=== PATIENT | male | born 1980 | race Caucasian/White ===

== ENCOUNTER 2016-11-14 10:03 | Inpatient (IN) | payer OTHER ==
[2016-11-14 10:23] VITALS: BMI 23.3
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
[2016-11-14] MEDS ORDERED: P-EPHED 60MG/TRIPROLIDI 2.5MG TABLET PO PRN (15:04)
[2016-11-14] MEDS ORDERED: MENTHOL/PHENOL 1 EACH UD MM PRN (15:04)
[2016-11-14] MEDS ORDERED: MAGNESIUM CITRATE 300 ML BOTTLE PO PRN (15:04)
[2016-11-14] MEDS ORDERED: guaiFENesin/D-METHORPHAN HB 10 ML UNIT-DOSE CUPS PO PRN (15:04)
[2016-11-14] MEDS ORDERED: hydrOXYzine PAMOATE 25 MG CAPSULE (FP) PO PRN (15:04)
[2016-11-14] MEDS ORDERED: diphenhydrAMINE HCL 50 MG CAPSULE PO PRN (15:04)
[2016-11-14] MEDS ORDERED: ACETAMINOPHEN 325 MG TABLET (FP) PO PRN (15:04)
[2016-11-14] MEDS ORDERED: MAG HYDROX/AL HYDROX/SIMETH 30 ML UNIT-DOSE CUP PO PRN (15:04)
[2016-11-14] MEDS ORDERED: LOPERAMIDE HCL 2 MG CAPSULE PO PRN (15:04)
[2016-11-14] MEDS ORDERED: MAGNESIUM HYDROX 2400MG/30ML ORAL SUSPENSION 30 ML CUP PO PRN (15:04)
[2016-11-14] MEDS ORDERED: diazePAM 5 MG TABLET PO ONE (15:49)
[2016-11-14] MEDS ORDERED: METHADONE HCL 10 MG TABLET (FOR DETOX USE ONLY) PO ONE ×2 (15:52→23:00)
[2016-11-14] MEDS: NICOTINE 21 MG/24 HOURS TOPICAL PATCH TD SCH (16:51)
[2016-11-14 17:22] LABS: URINE APPEARANCE TURBID; URINE BILIRUBIN NEGATIVE (NEGATIVE); URINE BLOOD NEGATIVE (NEGATIVE); URINE COLOR YELLOW; URINE GLUCOSE (UA) NEGATIVE (NEGATIVE); URINE KETONE NEGATIVE (NEGATIVE); URINE LEUK ESTERASE NEGATIVE (NEGATIVE); URINE NITRITE NEGATIVE (NEGATIVE); URINE PROTEIN NEGATIVE (NEGATIVE); URINE UROBILINOGEN NEGATIVE E.U./dl (0.2-1.0)
[2016-11-14] MEDS: NICOTINE POLACRILEX 4 MG GUM BUC PRN ×3 (17:41→22:16)
[2016-11-14] MEDS ORDERED: PHENYLEPHRINE 0.25%/STARCH 1 EACH SUPP.RECT PR ONE (21:47)
--- NOTE | 2016-11-14 21:49 | PN ---
[facility] Progress Note Note: c/o hemorrhoid hemorrhoid suppsitory x 1 continue detox
[2016-11-14] MEDS ORDERED: CYCLOBENZAPRINE HCL 10 MG TABLET (FP) PO SCH (22:00)
[2016-11-14] MEDS ORDERED: PHENYLEPHRINE 0.25%/STARCH 1 EACH SUPP.RECT RC ONE (22:00)
[2016-11-14] MEDS: GABAPENTIN 300 MG CAPSULE (FP) PO SCH (22:02)
[2016-11-14] MEDS: diazePAM 5 MG TABLET PO SCH (22:02)
[2016-11-14] MEDS: THIAMINE HCL 100 MG TABLET (FP) PO SCH (22:02)
[2016-11-15] MEDS: diazePAM 5 MG TABLET PO SCH ×3 (05:52→21:47)
--- NOTE | 2016-11-15 08:30 | CONSULT ---
[facility] Psychiatric Consult - Data Date of interview: 11/15/16 Admission source: [facility] Identifying data: Mr Sweeney is a 36 years old single male, unemployed on public assistance, domiciled seeking detox treatment for alcohol, heroin and xanax Substance Abuse History: - Smoking Cessation. Smoking history: Current every day smoker. Have you smoked in the past 12 months: Yes. Aproximately how many cigarettes per day: 20. Hx Chewing Tobacco Use: No. Initiated information on smoking cessation: Yes. 'Breaking Loose' booklet given: 11/14/16. - Substance & Tx. History. Hx Alcohol Use: Yes. Hx Substance Use: Yes (HEROIN/XANAX/ KLONOPIN/ATIVAN/ECSTACY). Substance Use Type: Alcohol, Heroin, Tranquilizers. Hx Substance Use Treatment: Yes. - Substances Abused. Heroin. Route: Injection. Frequency: Daily. Amount used: 10-12 bags. Age of first use: 23. Date of Last Use: 11/14/16. Alcohol. Route: Oral. Frequency: Daily. Amount used: 3 pints vodka. Age of first use: 13. Date of Last Use: 11/14/16. Alprazolam (Xanax). Route: Oral. Frequency: Daily. Amount used: 8mg. Age of first use: 23. Date of Last Use: 11/14/16 Medical History: Significant for history of Seizure Disorder, borderline DM, S/ P Testicular surgery at age 15 and S/P rectal prolapse. Smokes cigarettes 1ppd Psychiatric History: Denies history of previous psychiatric treatment. However, reports feeling anxious and experiencing difficulty to sleep Mental Status Exam - Mental Status Exam Alert and Oriented to: Time, Place, Person Cognitive Function: Fair Patient Appearance: Well Groomed Mood: Anxious Affect: Appropriate Patient Behavior: Cooperative Voice Loudness: Normal Thought Process: Intact Thought Disorder: Not Present Hallucinations: Denies Suicidal Ideation: Denies Homicidal Ideation: Denies Insight/Judgement: Poor Sleep: Poorly Appetite: Good Muscle strength/Tone: Normal Gait/Station: Normal Psychiatric Findings - Problem List ([place] 1, 2,3) (1) Substance-induced anxiety disorder Current Visit: Yes Status: Acute (2) Substance-induced sleep disorder Current Visit: Yes Status: Acute (3) Alcohol dependence with uncomplicated withdrawal Current Visit: Yes Status: Acute (4) Opioid dependence with withdrawal Current Visit: Yes Status: Acute (5) Sedative, hypnotic or anxiolytic dependence with withdrawal, uncomplicated Current Visit: Yes Status: Acute (6) Nicotine dependence Current Visit: Yes Status: Acute (7) History of borderline diabetes mellitus Current Visit: Yes Status: Acute (8) Seizure disorder Current Visit: Yes Status: Acute - Initial Treatment Plan Initial Treatment Plan: 1) Start Ambien 10 mg po HS prn for insomnia. Benefits vs Risks of medication discussed with patient and he agreed to try it. 2) Continue detox protocol
[2016-11-15] MEDS ORDERED: METHADONE HCL 10 MG TABLET (FOR DETOX USE ONLY) PO SCH (10:00)
[2016-11-15] MEDS: PRENATAL VITAMINS W/ FOLIC ACID TABLET (FP) PO SCH (10:05)
[2016-11-15] MEDS: GABAPENTIN 300 MG CAPSULE (FP) PO SCH ×2 (10:06→21:45)
[2016-11-15] MEDS: NICOTINE 21 MG/24 HOURS TOPICAL PATCH TD SCH (10:06)
[2016-11-15] MEDS: NICOTINE POLACRILEX 4 MG GUM BUC PRN ×4 (10:06→21:51)
[2016-11-15] MEDS: diazePAM 5 MG TABLET PO PRN ×2 (10:07→17:16)
[2016-11-15 11:08] LABS: MCH 32.2 pg (25.7-33.7); MCHC 33.6 g/dl (32.0-35.9); MEAN CELL VOLUME 96.1 fl (80-96); PLATELET COUNT 217 K/MM3 (134-434); RDW 13.3 % (11.9-15.9); WHITE BLOOD COUNT 8.7 K/mm3 (4.0-10.0)
[2016-11-15 11:54] LABS: ALBUMIN 3.8 g/dl (3.4-5.0); ALK PHOS 83 U/L (45-117); ANION GAP 7 (8-16); BILIRUBIN,TOTAL 0.2 mg/dL (0.2-1.0); CALCIUM 8.3 mg/dL (8.5-10.1); CO2 29 mmol/L (21-32); CREATININE 0.8 mg/dL (0.7-1.3); GLUCOSE,RANDOM 146 mg/dL (74-106); SGOT/AST 35 U/L (15-37); SGPT/ALT 33 U/L (12-78); TOT PROT 6.7 g/dl (6.4-8.2)
[2016-11-15] MEDS ORDERED: INFLUENZA VACCINE 45 MCG/0.5 ML (MDV 16-17) IM ONE (12:00)
[2016-11-15] MEDS: ZOLPIDEM TARTRATE 10 MG TABLET (PARK CARE ONLY) PO PRN (21:46)
[2016-11-15] MEDS: THIAMINE HCL 100 MG TABLET (FP) PO SCH (22:49)
[2016-11-16] MEDS: GABAPENTIN 300 MG CAPSULE (FP) PO SCH ×2 (10:07→21:59)
[2016-11-16] MEDS: PRENATAL VITAMINS W/ FOLIC ACID TABLET (FP) PO SCH (10:07)
[2016-11-16] MEDS: diazePAM 5 MG TABLET PO SCH ×2 (10:07→21:59)
[2016-11-16] MEDS: METHADONE HCL 5 MG TABLET (FOR DETOX USE ONLY) PO SCH (10:07)
[2016-11-16] MEDS: NICOTINE 21 MG/24 HOURS TOPICAL PATCH TD SCH (10:08)
--- NOTE | 2016-11-16 11:32 | PN ---
S CIWA - CIWA Score Nausea/Vomitin Muscle Tremors: 4-Moderate,w/Arms Extend Anxiety: 4-Mod. Anxious/Guarded Agitation: 4-Moderately Restless Paroxysmal Sweats: No Perspiration Orientation: 0-Oriented Tacttile Disturbances: 1-Very Mild Itch/Numbness Auditory Disturbances: 0-None Visual Disturbances: 0-None Headache: 3-Moderate CIWA-Ar Total Score: 21 [facility] COWS - Scale Resting Pulse: 1= SD 81-100 Sweatin=Flushed/Facial Moisture Restless Observation: 1= Difficult to Sit Still Pupil Size: 0= Normal to Room Light Bone or Joint Aches: 2= Severe Diffuse Aches Runny Nose/ Eye Tearin= Runny Nose/Eyes GI Upset > 30mins: 3= Vomiting/Diarrhea Tremor Observation of Outstretched Hands: 2= Slight Tremor Visible Yawning Observation: 0= None Anxiety or Irritability: 2=Irritable/Anxious Goose Flesh Skin: 0=Smooth Skin COWS Score: 15 S Progress Note (SOAP) Subjective: Headache, nausea, vomiting, rhinorrhea, sweating, tremor, chills Objective: 11/16/16 11:29 Last Vital Signs Temp Pulse Resp BP Pulse Ox 97 F L 93 H 20 122/70 11/16/16 11:22 11/16/16 11:22 11/16/16 11:22 11/16/16 11:22 Laboratory Tests 11/14/16 11/14/16 11/15/16 16:00 16:18 05:51 WBC RBC Hgb Hct MCV MCHC RDW Plt Count MPV Sodium Potassium Chloride Carbon Dioxide Anion Gap BUN Creatinine Creat Clearance w eGFR POC Glucometer 117 96 Random Glucose Calcium Total Bilirubin AST ALT Alkaline Phosphatase Total Protein Albumin Urine Color Yellow Urine Appearance Turbid Urine pH 7.0 Ur Specific [place] 1.028 Urine Protein Negative Urine Glucose (UA) Negative Urine Ketones Negative Urine Blood Negative Urine Nitrite Negative Urine Bilirubin Negative Urine Urobilinogen Negative Ur Leukocyte Esterase Negative 11/15/16 11/15/16 11/15/16 06:10 06:10 16:15 WBC 8.7 RBC 3.71 L Hgb 12.0 Hct 35.7 MCV 96.1 H MCHC 33.6 RDW 13.3 Plt Count 217 MPV 9.0 Sodium 142 Potassium 4.2 Chloride 106 Carbon Dioxide 29 Anion Gap 7 L BUN 18 Creatinine 0.8 Creat Clearance w eGFR > 60 POC Glucometer 86 Random Glucose 146 H Calcium 8.3 L Total Bilirubin 0.2 AST 35 ALT 33 Alkaline Phosphatase 83 Total Protein 6.7 Albumin 3.8 Urine Color Urine Appearance Urine pH Ur Specific [place] Urine Protein Urine Glucose (UA) Urine Ketones Urine Blood Urine Nitrite Urine Bilirubin Urine Urobilinogen Ur Leukocyte Esterase Labs noted: hyperglycemia; finger sticks wnl on 11/15/16 Assessment: 11/16/16 11:31 Withdrawal symptoms Noted with Hyperglycemia secondary to prediabetes Plan: Continue detox, encouraged to drink lots of fluids Hyperglycemia secondary to prediabetes: encourage lifestyle modification (diet and exercise as tolerated to lose weight)
[2016-11-16] MEDS: diazePAM 5 MG TABLET PO PRN ×3 (12:26→21:01)
[2016-11-16] MEDS: NICOTINE POLACRILEX 4 MG GUM BUC PRN ×2 (14:12→17:19)
[2016-11-16] MEDS: IBUPROFEN 400 MG TABLET (FP) PO PRN (18:41)
[2016-11-16] MEDS: ZOLPIDEM TARTRATE 10 MG TABLET (PARK CARE ONLY) PO PRN (21:59)
[2016-11-16] MEDS: THIAMINE HCL 100 MG TABLET (FP) PO SCH (21:59)
[2016-11-17] MEDS: diazePAM 5 MG TABLET PO PRN ×2 (05:42→14:41)
[2016-11-17] MEDS: diazePAM 5 MG TABLET PO SCH ×2 (10:04→21:49)
[2016-11-17] MEDS: GABAPENTIN 300 MG CAPSULE (FP) PO SCH ×2 (10:04→21:49)
[2016-11-17] MEDS: NICOTINE 21 MG/24 HOURS TOPICAL PATCH TD SCH (10:05)
[2016-11-17] MEDS: METHADONE HCL 5 MG TABLET (FOR DETOX USE ONLY) PO SCH (10:05)
[2016-11-17] MEDS: PRENATAL VITAMINS W/ FOLIC ACID TABLET (FP) PO SCH (10:05)
[2016-11-17] MEDS: NICOTINE POLACRILEX 4 MG GUM BUC PRN ×3 (10:06→18:43)
--- NOTE | 2016-11-17 10:36 | PN ---
[facility] CIWA - CIWA Score Nausea/Vomitin Muscle Tremors: 4-Moderate,w/Arms Extend Anxiety: 4-Mod. Anxious/Guarded Agitation: 4-Moderately Restless Paroxysmal Sweats: 3 Orientation: 0-Oriented Tacttile Disturbances: 1-Very Mild Itch/Numbness Auditory Disturbances: 0-None Visual Disturbances: 0-None Headache: 0-None Present CIWA-Ar Total Score: 19 [facility] COWS - Scale Resting Pulse: 2= [place] 101-120 Sweatin= Chills/Flushing Restless Observation: 1= Difficult to Sit Still Pupil Size: 1= Pupils >than Normal Bone or Joint Aches: 1= Mild Discomfort Runny Nose/ Eye Tearin= Nasal Congestion GI Upset > 30mins: 2= Nausea/Diarrhea Tremor Observation of Outstretched Hands: 2= Slight Tremor Visible Anxiety or Irritability: 2=Irritable/Anxious Goose Flesh Skin: 3=Piloerection [facility] Progress Note (SOAP) Subjective: nausea, sweats, interrupted sleep, anxiety, tremor Objective: 11/17/16 10:35 Vital Signs - 24 hr 11/16/16 11/16/16 11/16/16 11:22 14:11 17:08 Temperature 97 F L 96.2 F L 98.6 F Pulse Rate 93 H 88 69 Respiratory 20 20 16 Rate Blood Pressure 122/70 121/73 100/63 11/16/16 11/17/16 11/17/16 21:50 03:30 06:07 Temperature 97.0 F L 96.8 F L Pulse Rate 82 72 Respiratory 18 18 16 Rate Blood Pressure 110/68 116/77 11/17/16 09:14 Temperature 98.8 F Pulse Rate 111 H Respiratory 18 Rate Blood Pressure 124/78 Laboratory Tests 11/14/16 11/14/16 11/15/16 16:00 16:18 05:51 WBC RBC Hgb Hct MCV MCHC RDW Plt Count MPV Sodium Potassium Chloride Carbon Dioxide Anion Gap BUN Creatinine Creat Clearance w eGFR POC Glucometer 117 96 Random Glucose Calcium Total Bilirubin AST ALT Alkaline Phosphatase Total Protein Albumin Urine Color Yellow Urine Appearance Turbid Urine pH 7.0 Ur Specific [place] 1.028 Urine Protein Negative Urine Glucose (UA) Negative Urine Ketones Negative Urine Blood Negative Urine Nitrite Negative Urine Bilirubin Negative Urine Urobilinogen Negative Ur Leukocyte Esterase Negative RPR Titer 11/15/16 11/15/16 11/15/16 06:10 06:10 06:10 WBC 8.7 RBC 3.71 L Hgb 12.0 Hct 35.7 MCV 96.1 H MCHC 33.6 RDW 13.3 Plt Count 217 MPV 9.0 Sodium 142 Potassium 4.2 Chloride 106 Carbon Dioxide 29 Anion Gap 7 L BUN 18 Creatinine 0.8 Creat Clearance w eGFR > 60 POC Glucometer Random Glucose 146 H Calcium 8.3 L Total Bilirubin 0.2 AST 35 ALT 33 Alkaline Phosphatase 83 Total Protein 6.7 Albumin 3.8 Urine Color Urine Appearance Urine pH Ur Specific [place] Urine Protein Urine Glucose (UA) Urine Ketones Urine Blood Urine Nitrite Urine Bilirubin Urine Urobilinogen Ur Leukocyte Esterase RPR Titer Nonreactive 11/15/16 11/16/16 11/17/16 16:15 16:12 05:42 WBC RBC Hgb Hct MCV MCHC RDW Plt Count MPV Sodium Potassium Chloride Carbon Dioxide Anion Gap BUN Creatinine Creat Clearance w eGFR POC Glucometer 86 89 90 Random Glucose Calcium Total Bilirubin AST ALT Alkaline Phosphatase Total Protein Albumin Urine Color Urine Appearance Urine pH Ur Specific [place] Urine Protein Urine Glucose (UA) Urine Ketones Urine Blood Urine Nitrite Urine Bilirubin Urine Urobilinogen Ur Leukocyte Esterase RPR Titer Assessment: 11/17/16 10:36 withdrawal sx Plan: cont detox, fluids
[2016-11-17] MEDS: IBUPROFEN 400 MG TABLET (FP) PO PRN (12:09)
--- NOTE | 2016-11-17 12:47 | EKG ---
Test Reason : Blood Pressure : / mmHG Vent. Rate : 082 BPM Atrial Rate : 082 BPM P-R Int : 144 ms QRS Dur : 088 ms QT Int : 388 ms P-R-T Axes : 073 049 050 degrees QTc Int : 453 ms NORMAL SINUS RHYTHM NORMAL ECG NO PREVIOUS ECGS AVAILABLE Confirmed by ANDRE CID MD ([id number]) on 11/17/2016 12:47:37 PM Referred By: Confirmed By:ANDRE CID MD
--- NOTE | 2016-11-17 21:34 | PN ---
[facility] Progress Note Note: RECEIVED NURSE CALL PATIENT IS ANXIOUS RECOMMEND DEEP BREATHING EXERCISE PSYCHIATRIC EVALUATION CONTINUE DETOX
[2016-11-17] MEDS: cloNIDine HCL 0.1 MG TABLET PO SCH (21:49)
[2016-11-17] MEDS: THIAMINE HCL 100 MG TABLET (FP) PO SCH (21:49)
[2016-11-17] MEDS: ZOLPIDEM TARTRATE 10 MG TABLET (PARK CARE ONLY) PO PRN (22:00)
--- NOTE | 2016-11-17 22:40 | PN ---
[facility] Progress Note Note: Psychiatry Attending-international marketing manager's note : Called by nurse,Jerrell Green,to address Mr Sweeney's complaint of a "panic attack". Chart reviewed.Medications revisited.Case discussed with nurse's assembly line supervisor on duty. Attending psychiatrist,Dr Boykin,has evaluated this patient on admission (). His note is appreciated.Patient is interviewed via telephone.History as follows : Mr Sweeney is about to complete his detox program.He is aware that the valium protocol is ending with tonight's dose. Hospital course has been unremarkable until his request for more valium was denied.Mr Sweeney started producing complaint of intense anxiety." I need another order for 10 mg of valium prn (sic) otherwise I will get a panic attack." Patient indicates that his discharge is scheduled for tomorrow 11/18/16.He is reminded of the remaining HS dose of valium. Press Helper made it clear to Mr Sweeney that no extra dose of diazepam will be ordered because there is NO clinical justification at this time (no complaint of shortness of breath,feeling of impending doom, difficulty of swallowing,heavy sweating,moist palms,tachycardia). Vitals are reported as normal.Patient is argumentative,demanding and adversarial during telephone conversation with this junior underwriter. Mr Sweeney is offered titration of the dose of hydroxyzine.He refused." Vistaril is nothing.I am asking for valium.Why do I have to talk to you if you are not going to order my prn." Mr Sweeney ended the conversation. Impression and Intervention : .This situation bears the hallmarks of a manipulative/medication-seeking behavior. .No symptoms of a panic attack elicited.Therefore there is no reason to justify any additional doses of diazepam. .Firm limits were set with this patient.Alternate medication (hydroxyzine) and reassurance offered.Rejected by the patient. .Will continue to implement the treatment plan as per current orders. .Discussed with nurse on duty.
[2016-11-18] MEDS: NICOTINE POLACRILEX 4 MG GUM BUC PRN ×2 (03:25→09:34)
--- NOTE | 2016-11-18 08:57 | PN ---
[facility] Progress Note (SOAP) Subjective: no complaints Objective: 11/18/16 08:56 Vital Signs - 24 hr 11/17/16 11/17/16 11/17/16 09:14 13:22 17:16 Temperature 98.8 F 98.0 F 97.1 F L Pulse Rate 111 H 102 H 70 Respiratory 18 20 18 Rate Blood Pressure 124/78 115/75 102/61 11/17/16 11/18/16 11/18/16 22:26 00:15 06:29 Temperature 98 F 97.8 F Pulse Rate 82 93 H Respiratory 18 18 18 Rate Blood Pressure 102/70 121/80 Laboratory Tests 11/14/16 11/14/16 11/15/16 16:00 16:18 05:51 WBC RBC Hgb Hct MCV MCHC RDW Plt Count MPV Sodium Potassium Chloride Carbon Dioxide Anion Gap BUN Creatinine Creat Clearance w eGFR POC Glucometer 117 96 Random Glucose Calcium Total Bilirubin AST ALT Alkaline Phosphatase Total Protein Albumin Urine Color Yellow Urine Appearance Turbid Urine pH 7.0 Ur Specific [place] 1.028 Urine Protein Negative Urine Glucose (UA) Negative Urine Ketones Negative Urine Blood Negative Urine Nitrite Negative Urine Bilirubin Negative Urine Urobilinogen Negative Ur Leukocyte Esterase Negative RPR Titer 11/15/16 11/15/16 11/15/16 06:10 06:10 06:10 WBC 8.7 RBC 3.71 L Hgb 12.0 Hct 35.7 MCV 96.1 H MCHC 33.6 RDW 13.3 Plt Count 217 MPV 9.0 Sodium 142 Potassium 4.2 Chloride 106 Carbon Dioxide 29 Anion Gap 7 L BUN 18 Creatinine 0.8 Creat Clearance w eGFR > 60 POC Glucometer Random Glucose 146 H Calcium 8.3 L Total Bilirubin 0.2 AST 35 ALT 33 Alkaline Phosphatase 83 Total Protein 6.7 Albumin 3.8 Urine Color Urine Appearance Urine pH Ur Specific [place] Urine Protein Urine Glucose (UA) Urine Ketones Urine Blood Urine Nitrite Urine Bilirubin Urine Urobilinogen Ur Leukocyte Esterase RPR Titer Nonreactive 11/15/16 11/16/16 11/17/16 16:15 16:12 05:42 WBC RBC Hgb Hct MCV MCHC RDW Plt Count MPV Sodium Potassium Chloride Carbon Dioxide Anion Gap BUN Creatinine Creat Clearance w eGFR POC Glucometer 86 89 90 Random Glucose Calcium Total Bilirubin AST ALT Alkaline Phosphatase Total Protein Albumin Urine Color Urine Appearance Urine pH Ur Specific [place] Urine Protein Urine Glucose (UA) Urine Ketones Urine Blood Urine Nitrite Urine Bilirubin Urine Urobilinogen Ur Leukocyte Esterase RPR Titer 11/17/16 16:24 WBC RBC Hgb Hct MCV MCHC RDW Plt Count MPV Sodium Potassium Chloride Carbon Dioxide Anion Gap BUN Creatinine Creat Clearance w eGFR POC Glucometer 95 Random Glucose Calcium Total Bilirubin AST ALT Alkaline Phosphatase Total Protein Albumin Urine Color Urine Appearance Urine pH Ur Specific [place] Urine Protein Urine Glucose (UA) Urine Ketones Urine Blood Urine Nitrite Urine Bilirubin Urine Urobilinogen Ur Leukocyte Esterase RPR Titer Assessment: 11/18/16 08:57 medically stable, wishes to leave for court appearance today Plan: regular discharge, f/u PCP
--- NOTE | 2016-11-18 09:01 | DS ---
[facility] Detox Discharge Summary Admission Date: 11/14/16 Discharge Date: 11/18/16 - History Present History: Alcohol Dependence, Opioid Dependence Pertinent Past History: nicotine dependence, anxiety, depression, insomnia, seizures, DM - Physical Exam Results Vital Signs: Vital Signs Temperature 97.8 F 11/18/16 06:29 Pulse Rate 93 H 11/18/16 06:29 Respiratory Rate 18 11/18/16 06:29 Blood Pressure 121/80 11/18/16 06:29 O2 Sat by Pulse Oximetry (%) Pertinent Admission Physical Exam Findings: withdrawal sx - Treatment Hospital Course: Detox Protocol Followed, Detoxed Safely, Responded well, Discharged Condition Good, Rehab Referral Accepted - Medication Discharge Medications: Ambulatory Orders Gabapentin 1,800 mg PO BID 11/14/16 - Diagnosis (1) Alcohol dependence with uncomplicated withdrawal Current Visit: Yes Status: Acute (2) History of borderline diabetes mellitus Current Visit: Yes Status: Acute (3) Nicotine dependence Current Visit: Yes Status: Acute (4) Opioid dependence with withdrawal Current Visit: Yes Status: Acute (5) Sedative, hypnotic or anxiolytic dependence with withdrawal, uncomplicated Current Visit: Yes Status: Acute (6) Seizure disorder Current Visit: Yes Status: Acute (7) Substance-induced anxiety disorder Current Visit: Yes Status: Acute (8) Substance-induced sleep disorder Current Visit: Yes Status: Acute - AMA Did Patient Leave Against Medical Advice: No
[2016-11-18] MEDS: GABAPENTIN 300 MG CAPSULE (FP) PO SCH (09:32)
[2016-11-18] MEDS: PRENATAL VITAMINS W/ FOLIC ACID TABLET (FP) PO SCH (09:32)
[2016-11-18] MEDS: cloNIDine HCL 0.1 MG TABLET PO SCH (09:32)
[2016-11-18 09:33] VITALS: BP 119/74; PULSE 84; TEMP 98.1
[2016-11-18] MEDS: NICOTINE 21 MG/24 HOURS TOPICAL PATCH TD SCH (09:34)
[2016-11-18] MEDS ORDERED: diazePAM 5 MG TABLET PO SCH (10:00)
[2016-11-18] MEDS ORDERED: METHADONE HCL 10 MG TABLET (FOR DETOX USE ONLY) PO SCH (10:00)
[2016-11-19] MEDS ORDERED: METHADONE HCL 5 MG TABLET (FOR DETOX USE ONLY) PO SCH (06:00)
== END 2016-11-18 09:50 | disposition home or self-care (01) | DRG 773 ==
LOC: YASAS 10:03 → Y3N 14:31
PROVIDERS: ADMIT Internal Medicine; ATTEND Internal Medicine
PROC: HZ2ZZZZ Detoxification Services for Substance Abuse Treatment (ICD-10-PCS; principal; 2016-11-14)
DX: F11.23 Opioid dependence with withdrawal (principal); F13.230 Sedative, hypnotic or anxiolytic dependence with withdrawal, uncomplicated; F10.230 Alcohol dependence with withdrawal, uncomplicated; F17.210 Nicotine dependence, cigarettes, uncomplicated; F19.280 Other psychoactive substance dependence with psychoactive substance-induced anxiety disorder; F19.282 Other psychoactive substance dependence with psychoactive substance-induced sleep disorder; R73.03 Prediabetes; G40.909 Epilepsy, unspecified, not intractable, without status epilepticus; K64.8 Other hemorrhoids
CPT/HCPCS: 36415; 80053; 81003; 85027; 86593; 93005; 93010

== ENCOUNTER 2017-10-30 14:27 | Inpatient (IN) | payer OTHER ==
[2017-10-30 16:35] VITALS: BMI 23.3
--- NOTE | 2017-10-30 18:20 | HP ---
COWS - Scale Resting Pulse: 0= NM 80 or Below Sweatin=Flushed/Facial Moisture Restless Observation: 1= Difficult to Sit Still Pupil Size: 1= Pupils >than Normal Bone or Joint Aches: 2= Severe Diffuse Aches Runny Nose/ Eye Tearin= Runny Nose/Eyes GI Upset > 30mins: 3= Vomiting/Diarrhea Tremor Observation: 2= Slight Tremor Visible Yawning Observation: 1= 1-2x During Session Anxiety or Irritability: 2=Irritable/Anxious Goose Flesh Skin: 3=Piloerection COWS Score: 19 CIWA Score - CIWA Score Nausea/Vomitin Muscle Tremors: 2 Anxiety: 4-Mod. Anxious/Guarded Agitation: 2 Paroxysmal Sweats: 2 Orientation: 0-Oriented Tacttile Disturbances: 0-None Auditory Disturbances: 1-Very Mild Visual Disturbances: 1-Very Mild Sensitivity Headache: 0-None Present CIWA-Ar Total Score: 15 Admission ROS BHS - HPI Chief Complaint: WITHDRAWAL SYMPTOMS Allergies/Adverse Reactions: Allergies Allergy/AdvReac Type Severity Reaction Status Date / Time cyclobenzaprine HCl AdvReac Intermediate Verified 10/30/17 17:33 [From Flexeril] History of Present Illness: 37 Y.O. MAN WITH A HISTORY OF OPIOID, ALCOHOL AND BENZODIAZEPINE DEPENDENCE IS HERE SEEKING DETOX. HE REPORTS HE LAST COMPLETED DETOX AT [facility] 6 MONTHS AGO AND STATES HES LONGEST PERIOD CLEAN HAS BEEN 2 YEARS. Exam Limitations: No Limitations - Ebola screening Have you traveled outside of the country in the last 21 days: No (N) Have you had contact with anyone from an Ebola affected area: No Have you been sick,other than usual withdrawal symptoms: No Do you have a fever: No - Review of Systems Constitutional: Chills, Loss of Appetite, Night Sweats, Changes in sleep, Unintentional Wgt. Loss EENT: reports: Tearing, Nose Congestion Respiratory: reports: No Symptoms reported Cardiac: reports: No Symptoms Reported GI: reports: Diarrhea, Nausea, Vomiting, Abdominal cramping : reports: No Symptoms Reported Musculoskeletal: reports: No Symptoms Reported Integumentary: reports: No Symptoms Reported Neuro: reports: Seizure (3 MONTHS AGO) Endocrine: reports: No Symptoms Reported Hematology: reports: No Symptoms Reported Psychiatric: reports: Orientated x3, Anxious, Depressed Other Systems: Reviewed and Negative Patient History - Patient Medical History Hx Anemia: No Hx Asthma: No Hx Chronic Obstructive Pulmonary Disease (COPD): No Hx Cardiac Disorders: No Hx Congestive Heart Failure: No Hx Hypertension: No Hx Hypercholesterolemia: No Hx Pacemaker: No HX Cerebrovascular Accident: No Hx Seizures: Yes (last seizure 3 months ago.) Hx Dementia: No Hx Diabetes: Yes (borderline) Hx Gastrointestinal Disorders: No Hx Liver Disease: No Hx Genitourinary Disorders: No Hx Sexually Transmitted Disorders: No Hx Renal Disease (ESRD): No Hx Thyroid Disease: No Hx Human Immunodeficiency Virus (HIV): No (NEGATIVE HX) Hx Hepatitis C: No Hx Depression: Yes Hx Suicide Attempt: No (DENIES) Hx Bipolar Disorder: No Hx Schizophrenia: No - Patient Surgical History Past Surgical History: Yes Hx Neurologic Surgery: No Hx Cataract Extraction: No Hx Cardiac Surgery: No Hx Lung Surgery: No Hx Breast Surgery: No Hx Breast Biopsy: No Hx Abdominal Surgery: No Hx Appendectomy: No Hx Cholecystectomy: No Hx Genitourinary Surgery: Yes (TESTICULAR SX DUE TO TORSION AT 15 YRS OLD) Hx Orthopedic Surgery: No Other Surgical History: RECTAL PROLAPSE SX IN 1996 Anesthesia Reaction: No - PPD History Previous Implant?: Yes Documented Results: Negative w/proof Implanted On Prior R Admission?: Yes Date: 11/16/16 Results: 0 PPD to be Administered?: No - Reproductive History Patient is a Female of Child Bearing Age (11 -55 yrs old): No - Smoking Cessation Smoking history: Current every day smoker Have you smoked in the past 12 months: Yes Aproximately how many cigarettes per day: 20 Hx Chewing Tobacco Use: No Initiated information on smoking cessation: No 'Breaking Loose' booklet given: 10/30/17 - Substance & Tx. History Hx Alcohol Use: Yes Hx Substance Use: Yes Substance Use Type: Alcohol, Heroin, Tranquilizers Hx Substance Use Treatment: Yes (DETOX: [facility] 03/2017) - Substances Abused Alcohol Route: Oral Frequency: Daily Amount used: LIQUOR-2 PINTS, BEER- 1 SIX PACK Age of first use: 13 Date of Last Use: 10/29/17 Alprazolam (Xanax) Route: Oral Frequency: Daily Amount used: 6mg Age of first use: 20 Date of Last Use: 10/29/17 Heroin Route: Injection Frequency: Daily Amount used: 15 bags Age of first use: 20 Date of Last Use: 10/29/17 Family Disease History - Family Disease History Family Disease History: CA: Grandparent (GF-LEUKEMIA;GM-LUNG [place]), Other: Mother (BLOOD DISORDER) Admission Physical Exam [facility] - Vital Signs Vital Signs: Vital Signs - 24 hr 10/30/17 16:33 Temperature 98.4 F Pulse Rate 76 Respiratory 18 Rate Blood Pressure 129/71 - Physical General Appearance: Yes: Tremorous, Irritable, Sweating, Anxious HEENTM: Yes: Hearing grossly Normal, Normal ENT Inspection, Normocephalic, Normal Voice Respiratory: Yes: Chest Non-Tender, Lungs Clear, Normal Breath Sounds, No Respiratory Distress, No Accessory Muscle Use Neck: Yes: No masses,lesions,Nodules, Trachea in good position Breast: Yes: Breast Exam Deferred Cardiology: Yes: Regular Rhythm, Regular Rate Abdominal: Yes: Normal Bowel Sounds, Non Tender, Flat Genitourinary: Yes: Other (NO COMPLAINTS REPORTED) Back: Yes: Normal Inspection Musculoskeletal: Yes: full range of Motion, Gait Steady, Pelvis Stable Extremities: Yes: Tremors Neurological: Yes: bus matron II-XII NML intact, Fully Oriented, Alert, Motor Strength 5/5, Normal Mood/Affect, Normal Response Integumentary: Yes: Normal Color, Dry, Warm Lymphatic: Yes: Within Normal Limits - Diagnostic (1) Alcohol dependence with uncomplicated withdrawal Current Visit: Yes Status: Chronic (2) Nicotine dependence Current Visit: Yes Status: Chronic (3) Opioid dependence with withdrawal Current Visit: Yes Status: Chronic (4) Sedative, hypnotic or anxiolytic dependence with withdrawal, uncomplicated Current Visit: Yes Status: Chronic (5) Seizure disorder Current Visit: Yes Status: Chronic Cleared for Admission [facility] - Detox or Rehab [facility] Level of Care: Medically Managed Detox Regimen/Protocol: Methadone/Valium [facility] Breath Alcohol Content Breath Alcohol Content: 0 Urine Drug Screen - Results Drug Screen Negative: No Urine Drug Screen Results: IDALMIS-Cocaine, OPI-Opiates, BZO-Benzodiazepines, MTD- Methadone
[2017-10-30] MEDS ORDERED: hydrOXYzine PAMOATE 50 MG CAPSULE (FP) PO PRN (18:35)
[2017-10-30] MEDS ORDERED: MAGNESIUM HYDROX 2400MG/30ML ORAL SUSPENSION 30 ML CUP PO PRN (18:35)
[2017-10-30] MEDS ORDERED: IBUPROFEN 400 MG TABLET (FP) PO PRN (18:35)
[2017-10-30] MEDS ORDERED: MAG HYDROX/AL HYDROX/SIMETH 30 ML UNIT-DOSE CUP PO PRN (18:35)
[2017-10-30] MEDS ORDERED: MAGNESIUM CITRATE 300 ML BOTTLE PO PRN (18:35)
[2017-10-30] MEDS ORDERED: MENTHOL/PHENOL 1 EACH UD MM PRN (18:35)
[2017-10-30] MEDS ORDERED: diazePAM 5 MG TABLET PO ONE (18:35)
[2017-10-30] MEDS ORDERED: guaiFENesin/D-METHORPHAN HB 10 ML UNIT-DOSE CUPS PO PRN (18:35)
[2017-10-30] MEDS ORDERED: ACETAMINOPHEN 325 MG TABLET (FP) PO PRN (18:35)
[2017-10-30] MEDS ORDERED: P-EPHED 60MG/TRIPROLIDI 2.5MG TABLET PO PRN (18:35)
[2017-10-30] MEDS ORDERED: LOPERAMIDE HCL 2 MG CAPSULE PO PRN (18:35)
[2017-10-30] MEDS ORDERED: METHADONE HCL 10 MG TABLET (FOR DETOX USE ONLY) PO ONE ×2 (18:35→23:00)
[2017-10-30] MEDS: NICOTINE POLACRILEX 2 MG GUM BUC PRN ×2 (20:47→23:10)
[2017-10-30] MEDS: GABAPENTIN 400 MG CAPSULE (FP) PO SCH (22:04)
[2017-10-30] MEDS: THIAMINE HCL 100 MG TABLET (FP) PO SCH (22:05)
[2017-10-30] MEDS: diazePAM 5 MG TABLET PO SCH (22:05)
[2017-10-30 23:29] LABS: URINE APPEARANCE CLOUDY; URINE BILIRUBIN NEGATIVE (NEGATIVE); URINE BLOOD NEGATIVE (NEGATIVE); URINE COLOR YELLOW; URINE GLUCOSE (UA) NEGATIVE (NEGATIVE); URINE KETONE NEGATIVE (NEGATIVE); URINE LEUK ESTERASE NEGATIVE (NEGATIVE); URINE NITRITE NEGATIVE (NEGATIVE); URINE PROTEIN NEGATIVE (NEGATIVE); URINE UROBILINOGEN NEGATIVE mg/dL (0.2-1.0)
[2017-10-31] MEDS: diazePAM 5 MG TABLET PO PRN ×4 (00:35→20:59)
[2017-10-31] MEDS: diazePAM 5 MG TABLET PO SCH ×3 (05:18→22:39)
[2017-10-31] MEDS: GABAPENTIN 400 MG CAPSULE (FP) PO SCH ×3 (05:18→22:35)
[2017-10-31] MEDS: NICOTINE POLACRILEX 2 MG GUM BUC PRN ×6 (05:19→22:35)
[2017-10-31] MEDS: NICOTINE 21 MG/24 HOURS TOPICAL PATCH TD SCH (09:58)
[2017-10-31] MEDS: PRENATAL VITAMINS W/ FOLIC ACID TABLET (FP) PO SCH (09:58)
[2017-10-31] MEDS ORDERED: METHADONE HCL 10 MG TABLET (FOR DETOX USE ONLY) PO SCH (10:00)
[2017-10-31 11:00] LABS: HEMATOCRIT 40.8 % (35.4-49); HEMOGLOBIN 13.2 GM/dL (11.7-16.9); MCH 30.2 pg (25.7-33.7); MCHC 32.3 g/dl (32.0-35.9); MEAN CELL VOLUME 93.4 fl (80-96); MEAN PLT VOLUME 8.6 fl (7.5-11.1); PLATELET COUNT 214 K/MM3 (134-434); RBC 4.37 M/mm3 (4.00-5.60); RDW 13.2 % (11.9-15.9); WHITE BLOOD COUNT 8.5 K/mm3 (4.0-10.0)
[2017-10-31 11:04] LABS: ALBUMIN 3.4 g/dl (3.4-5.0); ALK PHOS 75 U/L (45-117); ANION GAP 6 (8-16); BILIRUBIN,TOTAL 0.2 mg/dL (0.2-1.0); BLOOD UREA NITROGEN 18 mg/dL (7-18); CALCIUM 8.6 mg/dL (8.5-10.1); CHLORIDE 105 mmol/L (98-107); CO2 31 mmol/L (21-32); CREATININE 0.9 mg/dL (0.7-1.3); GLUCOSE,RANDOM 72 mg/dL (74-106); SGOT/AST 16 U/L (15-37); SGPT/ALT 17 U/L (12-78); SODIUM 142 mmol/L (136-145); TOT PROT 6.3 g/dl (6.4-8.2)
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
--- NOTE | 2017-10-31 13:40 | EKG ---
Test Reason : Blood Pressure : / mmHG Vent. Rate : 062 BPM Atrial Rate : 062 BPM P-R Int : 128 ms QRS Dur : 086 ms QT Int : 432 ms P-R-T Axes : 083 051 043 degrees QTc Int : 438 ms NORMAL SINUS RHYTHM POSSIBLE LEFT ATRIAL ENLARGEMENT LEFT VENTRICULAR HYPERTROPHY ABNORMAL ECG WHEN COMPARED WITH ECG OF 14-NOV-2016 15:49, T WAVE AMPLITUDE HAS INCREASED IN LATERAL LEADS Confirmed by MARTIN BUTCHER MD ([id number]) on 10/31/2017 1:40:21 PM Referred By: Confirmed By:MARTIN BUTCHER MD
--- NOTE | 2017-10-31 13:42 | PN ---
S CIWA - CIWA Score Nausea/Vomitin Muscle Tremors: 2 Anxiety: 3 Agitation: 3 Paroxysmal Sweats: 2 Orientation: 1-Uncertain about Date Tacttile Disturbances: 2-Mild Itch/Numbness/Burn Auditory Disturbances: 1-Very Mild Visual Disturbances: 1-Very Mild Sensitivity Headache: 2-Mild CIWA-Ar Total Score: 19 BHS COWS - Scale Resting Pulse: 0= [place] 80 or Below Sweatin= Chills/Flushing Restless Observation: 3= Extraneous Movement Pupil Size: 0= Normal to Room Light Bone or Joint Aches: 2= Severe Diffuse Aches Runny Nose/ Eye Tearin= Nasal Congestion GI Upset > 30mins: 2= Nausea/Diarrhea Tremor Observation of Outstretched Hands: 2= Slight Tremor Visible Yawning Observation: 1= 1-2x During Session Anxiety or Irritability: 2=Irritable/Anxious Goose Flesh Skin: 3=Piloerection COWS Score: 17 BHS Progress Note (SOAP) Subjective: Anxiety, irritability, shakes, sweats, N/V, body aches Objective: 10/31/17 13:40 Vital Signs 10/31/17 10/31/17 06:19 09:46 Temperature 96.3 F L 96.1 F L Pulse Rate 53 L 60 Respiratory 16 18 Rate Blood Pressure 105/68 115/76 Laboratory Last Values WBC 8.5 K/mm3 (4.0-10.0) 10/31/17 08:00 RBC 4.37 M/mm3 (4.00-5.60) 10/31/17 08:00 Hgb 13.2 GM/dL (11.7-16.9) 10/31/17 08:00 Hct 40.8 % (35.4-49) 10/31/17 08:00 MCV 93.4 fl (80-96) 10/31/17 08:00 MCH 30.2 pg (25.7-33.7) 10/31/17 08:00 MCHC 32.3 g/dl (32.0-35.9) 10/31/17 08:00 RDW 13.2 % (11.9-15.9) 10/31/17 08:00 Plt Count 214 K/MM3 (134-434) 10/31/17 08:00 MPV 8.6 fl (7.5-11.1) 10/31/17 08:00 Sodium 142 mmol/L (136-145) 10/31/17 08:00 Potassium 4.0 mmol/L (3.5-5.1) 10/31/17 08:00 Chloride 105 mmol/L (98-107) 10/31/17 08:00 Carbon Dioxide 31 mmol/L (21-32) 10/31/17 08:00 Anion Gap 6 (8-16) L 10/31/17 08:00 BUN 18 mg/dL (7-18) 10/31/17 08:00 Creatinine 0.9 mg/dL (0.7-1.3) 10/31/17 08:00 Creat Clearance w eGFR > 60 (>60) 10/31/17 08:00 Random Glucose 72 mg/dL (74-106) L D 10/31/17 08:00 Calcium 8.6 mg/dL (8.5-10.1) 10/31/17 08:00 Total Bilirubin 0.2 mg/dL (0.2-1.0) 10/31/17 08:00 AST 16 U/L (15-37) D 10/31/17 08:00 ALT 17 U/L (12-78) D 10/31/17 08:00 Alkaline Phosphatase 75 U/L (45-117) 10/31/17 08:00 Total Protein 6.3 g/dl (6.4-8.2) L 10/31/17 08:00 Albumin 3.4 g/dl (3.4-5.0) 10/31/17 08:00 Urine Color Yellow 10/30/17 20:10 Urine Appearance Cloudy 10/30/17 20:10 Urine pH 8.0 (5.0-8.0) 10/30/17 20:10 Ur Specific [place] 1.016 (1.001-1.035) 10/30/17 20:10 Urine Protein Negative (NEGATIVE) 10/30/17 20:10 Urine Glucose (UA) Negative (NEGATIVE) 10/30/17 20:10 Urine Ketones Negative (NEGATIVE) 10/30/17 20:10 Urine Blood Negative (NEGATIVE) 10/30/17 20:10 Urine Nitrite Negative (NEGATIVE) 10/30/17 20:10 Urine Bilirubin Negative (NEGATIVE) 10/30/17 20:10 Urine Urobilinogen Negative mg/dL (0.2-1.0) 10/30/17 20:10 Ur Leukocyte Esterase Negative (NEGATIVE) 10/30/17 20:10 RPR Titer Nonreactive (NONREACTIVE) 10/31/17 08:00 Labs noted Assessment: 10/31/17 13:40 Withdrawal sx Plan: Continue detox Increase nicorette gum to 4mg
[2017-10-31] MEDS: THIAMINE HCL 100 MG TABLET (FP) PO SCH (22:34)
[2017-10-31] MEDS: ZOLPIDEM TARTRATE 5 MG TABLET PO PRN (22:35)
[2017-11-01] MEDS: GABAPENTIN 400 MG CAPSULE (FP) PO SCH ×3 (05:20→22:15)
[2017-11-01] MEDS: diazePAM 5 MG TABLET PO PRN ×4 (05:20→21:00)
[2017-11-01] MEDS: NICOTINE POLACRILEX 2 MG GUM BUC PRN ×6 (06:00→23:19)
[2017-11-01] MEDS: METHADONE HCL 5 MG TABLET (FOR DETOX USE ONLY) PO SCH (10:18)
[2017-11-01] MEDS: PRENATAL VITAMINS W/ FOLIC ACID TABLET (FP) PO SCH (10:18)
[2017-11-01] MEDS: diazePAM 5 MG TABLET PO SCH ×2 (10:18→22:17)
[2017-11-01] MEDS: NICOTINE 21 MG/24 HOURS TOPICAL PATCH TD SCH (10:19)
[2017-11-01] MEDS: cloNIDine HCL 0.1 MG TABLET PO SCH ×2 (11:23→22:15)
--- NOTE | 2017-11-01 13:06 | PN ---
[facility] CIWA - CIWA Score Nausea/Vomitin-Mild Nausea/No Vomiting Muscle Tremors: 3 Anxiety: 4-Mod. Anxious/Guarded Agitation: 4-Moderately Restless Paroxysmal Sweats: 3 Orientation: 0-Oriented Tacttile Disturbances: 0-None Auditory Disturbances: 0-None Visual Disturbances: 0-None Headache: 0-None Present CIWA-Ar Total Score: 15 BHS COWS - Scale Resting Pulse: 1= [place] 81-100 Sweatin=Flushed/Facial Moisture Restless Observation: 1= Difficult to Sit Still Pupil Size: 0= Normal to Room Light Bone or Joint Aches: 1= Mild Discomfort Runny Nose/ Eye Tearin= Runny Nose/Eyes GI Upset > 30mins: 2= Nausea/Diarrhea Tremor Observation of Outstretched Hands: 2= Slight Tremor Visible Yawning Observation: 1= 1-2x During Session Anxiety or Irritability: 2=Irritable/Anxious Goose Flesh Skin: 0=Smooth Skin COWS Score: 14 S Progress Note (SOAP) Subjective: Anxiety,diarrhea,body aches,sweating,interrupted sleep,restless Objective: 11/01/17 13:05 Last Vital Signs Temp Pulse Resp BP Pulse Ox 98.2 F 89 16 138/83 11/01/17 09:56 11/01/17 09:56 11/01/17 09:56 11/01/17 09:56 Laboratory Tests 10/30/17 10/31/17 10/31/17 20:10 08:00 08:00 WBC 8.5 RBC 4.37 Hgb 13.2 Hct 40.8 MCV 93.4 MCH 30.2 MCHC 32.3 RDW 13.2 Plt Count 214 MPV 8.6 Sodium 142 Potassium 4.0 Chloride 105 Carbon Dioxide 31 Anion Gap 6 L BUN 18 Creatinine 0.9 Creat Clearance w eGFR > 60 Random Glucose 72 L D Calcium 8.6 Total Bilirubin 0.2 AST 16 D ALT 17 D Alkaline Phosphatase 75 Total Protein 6.3 L Albumin 3.4 Urine Color Yellow Urine Appearance Cloudy Urine pH 8.0 Ur Specific [place] 1.016 Urine Protein Negative Urine Glucose (UA) Negative Urine Ketones Negative Urine Blood Negative Urine Nitrite Negative Urine Bilirubin Negative Urine Urobilinogen Negative Ur Leukocyte Esterase Negative RPR Titer 10/31/17 08:00 WBC RBC Hgb Hct MCV MCH MCHC RDW Plt Count MPV Sodium Potassium Chloride Carbon Dioxide Anion Gap BUN Creatinine Creat Clearance w eGFR Random Glucose Calcium Total Bilirubin AST ALT Alkaline Phosphatase Total Protein Albumin Urine Color Urine Appearance Urine pH Ur Specific [place] Urine Protein Urine Glucose (UA) Urine Ketones Urine Blood Urine Nitrite Urine Bilirubin Urine Urobilinogen Ur Leukocyte Esterase RPR Titer Nonreactive labs noted Assessment: 11/01/17 13:05 Withdrawal sx. Plan: Continue detox
[2017-11-01] MEDS: THIAMINE HCL 100 MG TABLET (FP) PO SCH (22:14)
[2017-11-01] MEDS: ZOLPIDEM TARTRATE 5 MG TABLET PO PRN (22:15)
[2017-11-02] MEDS: GABAPENTIN 400 MG CAPSULE (FP) PO SCH ×3 (05:35→22:21)
[2017-11-02] MEDS: diazePAM 5 MG TABLET PO PRN ×3 (05:35→16:34)
[2017-11-02] MEDS: NICOTINE POLACRILEX 2 MG GUM BUC PRN ×5 (06:07→21:50)
[2017-11-02] MEDS: METHADONE HCL 5 MG TABLET (FOR DETOX USE ONLY) PO SCH (10:18)
[2017-11-02] MEDS: diazePAM 5 MG TABLET PO SCH ×2 (10:18→22:21)
[2017-11-02] MEDS: PRENATAL VITAMINS W/ FOLIC ACID TABLET (FP) PO SCH (10:18)
[2017-11-02] MEDS: NICOTINE 21 MG/24 HOURS TOPICAL PATCH TD SCH (11:11)
[2017-11-02] MEDS: cloNIDine HCL 0.1 MG TABLET PO SCH ×2 (11:18→22:21)
--- NOTE | 2017-11-02 12:08 | PN ---
BHS Progress Note (SOAP) Subjective: Sweating, interrupted sleep, rhinorrhea, chills, body ache, LBP Objective: 11/02/17 12:05 Last Vital Signs Temp Pulse Resp BP Pulse Ox 97.7 F 69 18 93/68 11/02/17 11:06 11/02/17 11:06 11/02/17 11:06 11/02/17 11:06 B/P 93/68 (hypotension), normal as per patient, states his b/p usually runs low ; asymptomatic Laboratory Tests 10/30/17 10/31/17 10/31/17 20:10 08:00 08:00 WBC 8.5 RBC 4.37 Hgb 13.2 Hct 40.8 MCV 93.4 MCH 30.2 MCHC 32.3 RDW 13.2 Plt Count 214 MPV 8.6 Sodium 142 Potassium 4.0 Chloride 105 Carbon Dioxide 31 Anion Gap 6 L BUN 18 Creatinine 0.9 Creat Clearance w eGFR > 60 Random Glucose 72 L D Calcium 8.6 Total Bilirubin 0.2 AST 16 D ALT 17 D Alkaline Phosphatase 75 Total Protein 6.3 L Albumin 3.4 Urine Color Yellow Urine Appearance Cloudy Urine pH 8.0 Ur Specific [place] 1.016 Urine Protein Negative Urine Glucose (UA) Negative Urine Ketones Negative Urine Blood Negative Urine Nitrite Negative Urine Bilirubin Negative Urine Urobilinogen Negative Ur Leukocyte Esterase Negative RPR Titer 10/31/17 08:00 WBC RBC Hgb Hct MCV MCH MCHC RDW Plt Count MPV Sodium Potassium Chloride Carbon Dioxide Anion Gap BUN Creatinine Creat Clearance w eGFR Random Glucose Calcium Total Bilirubin AST ALT Alkaline Phosphatase Total Protein Albumin Urine Color Urine Appearance Urine pH Ur Specific [place] Urine Protein Urine Glucose (UA) Urine Ketones Urine Blood Urine Nitrite Urine Bilirubin Urine Urobilinogen Ur Leukocyte Esterase RPR Titer Nonreactive Labs noted Assessment: 11/02/17 12:07 Withdrawal symptoms Noted with hypotension Plan: Continue detox Hypotension: asymptomatic, encouraged to drink more water, continue to monitor
[2017-11-02] MEDS: THIAMINE HCL 100 MG TABLET (FP) PO SCH (22:20)
[2017-11-02] MEDS: ZOLPIDEM TARTRATE 5 MG TABLET PO PRN (22:21)
[2017-11-03] MEDS: GABAPENTIN 400 MG CAPSULE (FP) PO SCH (05:25)
[2017-11-03 06:52] VITALS: BP 94/51; PULSE 52; TEMP 97.4
[2017-11-03] MEDS ORDERED: diazePAM 5 MG TABLET PO SCH (10:00)
[2017-11-03] MEDS ORDERED: METHADONE HCL 10 MG TABLET (FOR DETOX USE ONLY) PO SCH (10:00)
--- NOTE | 2017-11-03 14:11 | DS ---
[facility] Detox Discharge Summary Admission Date: 10/30/17 Discharge Date: 11/03/17 - History Present History: Alcohol Dependence, Opioid Dependence, Sedative Dependence Additional Comments: Patient was very angry, agitated and loud this morning as he told caption writer that he is ready to leave AMA because he is not getting enough methadone here. Patient made aware of the protocol and the maximum amount of methadone allowed. As per patient, he is leaving AMA so he can go outside and get high and that he has been getting high for the past 37 years. Director Diabetes tried to convince patient to stay but he left anyway. He was instructed to follow up with his PCP within 3 days. Patient counseled about withdrawal symptoms and even possibility of but he stated that he doesn't care. Pertinent Past History: Prediabetes Seizure disorder - Physical Exam Results Vital Signs: Vital Signs Temperature 97.4 F L 11/03/17 06:51 Pulse Rate 52 L 11/03/17 06:51 Respiratory Rate 18 11/03/17 06:51 Blood Pressure 94/51 11/03/17 06:51 O2 Sat by Pulse Oximetry (%) Pertinent Admission Physical Exam Findings: Withdrawal symptoms Laboratory Tests 10/30/17 10/31/17 10/31/17 20:10 08:00 08:00 WBC 8.5 RBC 4.37 Hgb 13.2 Hct 40.8 MCV 93.4 MCH 30.2 MCHC 32.3 RDW 13.2 Plt Count 214 MPV 8.6 Sodium 142 Potassium 4.0 Chloride 105 Carbon Dioxide 31 Anion Gap 6 L BUN 18 Creatinine 0.9 Creat Clearance w eGFR > 60 Random Glucose 72 L D Calcium 8.6 Total Bilirubin 0.2 AST 16 D ALT 17 D Alkaline Phosphatase 75 Total Protein 6.3 L Albumin 3.4 Urine Color Yellow Urine Appearance Cloudy Urine pH 8.0 Ur Specific [place] 1.016 Urine Protein Negative Urine Glucose (UA) Negative Urine Ketones Negative Urine Blood Negative Urine Nitrite Negative Urine Bilirubin Negative Urine Urobilinogen Negative Ur Leukocyte Esterase Negative RPR Titer 10/31/17 08:00 WBC RBC Hgb Hct MCV MCH MCHC RDW Plt Count MPV Sodium Potassium Chloride Carbon Dioxide Anion Gap BUN Creatinine Creat Clearance w eGFR Random Glucose Calcium Total Bilirubin AST ALT Alkaline Phosphatase Total Protein Albumin Urine Color Urine Appearance Urine pH Ur Specific [place] Urine Protein Urine Glucose (UA) Urine Ketones Urine Blood Urine Nitrite Urine Bilirubin Urine Urobilinogen Ur Leukocyte Esterase RPR Titer Nonreactive Labs noted - Medication Discharge Medications: Ambulatory Orders Gabapentin 1,200 mg PO TID 11/14/16 - Diagnosis (1) Depression Status: Chronic (2) Nicotine dependence Status: Chronic Qualifiers: Nicotine product type: cigarettes Substance use status: uncomplicated Qualified Code(s): F17.210 - Nicotine dependence, cigarettes, uncomplicated (3) Opioid dependence with withdrawal Status: Acute (4) Sedative, hypnotic or anxiolytic dependence with withdrawal, uncomplicated Status: Acute (5) Alcohol dependence with uncomplicated withdrawal Status: Acute (6) Seizure disorder Status: Chronic (7) History of borderline diabetes mellitus Status: Chronic - AMA Did Patient Leave Against Medical Advice: Yes (F/U with PCP within 3 days)
[2017-11-04] MEDS ORDERED: METHADONE HCL 5 MG TABLET (FOR DETOX USE ONLY) PO SCH (06:00)
== END 2017-11-03 10:10 | disposition left against medical advice (07) | DRG 770 ==
LOC: YASAS 14:27 → Y3N 17:56
PROVIDERS: ADMIT Internal Medicine; ATTEND Internal Medicine
PROC: HZ2ZZZZ Detoxification Services for Substance Abuse Treatment (ICD-10-PCS; principal; 2017-10-30)
DX: F11.23 Opioid dependence with withdrawal (principal); F13.230 Sedative, hypnotic or anxiolytic dependence with withdrawal, uncomplicated; F10.230 Alcohol dependence with withdrawal, uncomplicated; F14.20 Cocaine dependence, uncomplicated; F17.210 Nicotine dependence, cigarettes, uncomplicated; F19.24 Other psychoactive substance dependence with psychoactive substance-induced mood disorder; F19.280 Other psychoactive substance dependence with psychoactive substance-induced anxiety disorder; F32.9 Major depressive disorder, single episode, unspecified; I95.9 Hypotension, unspecified; G40.909 Epilepsy, unspecified, not intractable, without status epilepticus; R73.03 Prediabetes; G47.00 Insomnia, unspecified
CPT/HCPCS: 36415; 80053; 81003; 85027; 86593; 93005; 93010